=== PATIENT | female | born 1995 | race Caucasian/White ===

== ENCOUNTER 2022-08-01 10:30 | Emergency (ER) | payer MEDICARE, MEDICAID, SELFPAY ==
--- NOTE | ~2022-08-01 | US_ITS ---
EXAMINATION: US OBSTETRICAL ULTRASOUND CLINICAL INFORMATION: Abdominal pain and bleeding. Estimated gestational age of 7 weeks. COMPARISON: Pelvic ultrasound from 04/11/2015. LMP: 05/12/2022. TECHNIQUE: Sonographic imaging of the pelvis is performed using abdominal and transvaginal transducers. FINDINGS: The uterus is anteverted. The cervix is normal; it measures approximately 3 cm in length. Within the mid to lower third of the endometrial cavity, there is a well-formed gestational sac that has a mean diameter of 1.33 cm, corresponding to an estimated gestational age of 6 weeks, 1 day and estimated date of delivery of 03/26/2023. The yolk sac measures up to 0.5 cm diameter. A small echogenic structure that likely represents the pole is approximately 0.2 cm in length. There is no visible cardiac activity. However, cardiac activity might not be detected into the crown-rump length is at least 0.4 cm. No evidence of subchorionic hemorrhage. MATERNAL ADNEXA: The right ovary is 2.6 x 2.4 x 2.8 cm. No right-sided adnexal mass. A structure that likely represents the left ovary is 2.8 x 1.9 x 1.7 cm. No evidence of a left adnexal mass. No pelvic free fluid. US/US OB pelvic and transvaginal IMPRESSION: Single intrauterine gestation with ultrasound gestational age of 6 weeks, 1 day. viability is not documented on this test. The suspected pole is approximately 0.2 cm in length which may be too small for detection of a heartbeat. If deemed clinically appropriate, obtain pelvic ultrasound follow-up in the next 11-14 days since after this length of time, there should be a visible embryo with a visible heartbeat. No evidence of an adnexal mass or pelvic free fluid.
[2022-08-01 10:44] VITALS: BP 134/76; PULSE 99; RESP 16; TEMP 36.4; O2SAT 99; BMI 27.4
--- NOTE | 2022-08-01 11:50 | ED_ITS ---
HPI - General Adult General Chief complaint: General Medical Stated complaint: Miscarriage? 7 weeks Time Seen by Provider: 08/01/22 11:25 Source: patient Mode of arrival: ambulatory Limitations: no limitations History of Present Illness HPI narrative: Patient is a 26-year-old female who presents to the emergency department reporting vaginal bleeding during current . She states that her last menstrual period was 05/12/2022, with history of irregular periods. She states that she had an ultrasound done 07/10/2022 which indicated she was approximately 4 weeks at this time, reporting approximate gestation currently of 7 weeks . Yesterday she began having vaginal bleeding, described as like and spotting, although last night she also reports past a larger blood clot. Today she is having spotting, currently wearing a Julio Cesar pad, no complete saturation today. Having lower abdominal pain described as cramping 03/15. Has not yet had any care. Related Data Previous Rx's Medication Instructions Recorded cefuroxime axetil 250 mg tablet 250 mg PO BID #10 tabs 08/01/22 Allergies Allergy/AdvReac Type Severity Reaction Status Date / Time No Known Allergies Allergy Unverified 03/22/20 18:54 [No Known Allergies*] Review of Systems Review of Systems: Constitutional: No weight loss, fever, chills, weakness or fatigue. Skin: No rash or itching. Cardiovascular: No chest pain, chest pressure or chest discomfort. No palpitatio ns or pedal edema. Respiratory: No shortness of breath, cough or sputum production. Gastrointestinal: No anorexia, nausea, vomiting or diarrhea. positive abdominal pain. Denies blood in stool. Genitourinary: No burning micturition. No urinary frequency or incontinence. Positive vaginal bleeding Musculoskeletal: No muscle pain, back pain, joint pain or stiffness. Psychiatric: No depression or anxiety. Yes all other systems are reviewed and are negative FORMERLY [facility], [facility]–1983 Past Medical History Attestation statement: The following information was validated with the patient. Source: old records reviewed Social History Social History Alcohol intake: never Smoked in Last 30 Days: No Use of substances other than those prescribed or required for medical reasons: No Advance Directives: No Advance Directives Information Provided: No Physical Exam ED Vital Signs: Vital Signs - 24 hr 08/01/22 10:44 Temperature 97.5 F Pulse Rate 99 Respiratory Rate 16 Blood Pressure 134/76 Pulse Oximetry 99 Oxygen Delivery Method Room Air BMI result Body Mass Index 27.4 Appearance: Alert.?Oriented to person, place and time. No acute distress.?Normal affect. Eyes: Pupils equal, round and reactive to light.? ENT: Pharynx normal.?? Neck: Normal inspection.? Neck supple.?? CVS: Heart sounds normal. Normal heart rate and rhythm.? Pulses normal.?? Respiratory: No respiratory distress.? Lung sounds clear to auscultation bilaterally?? Abdomen: Soft and non-tender. Normoactive bowel sounds. Skin: Skin warm and dry.? Normal skin color.? Extremities: No lower extremity edema.? Neuro: Moves all extremities spontaneously. Sensation intact bilaterally. No focal neuro deficits. Ambulates with normal steady gait. Course Reevaluation(s) Reevaluation #1: CBC reveals no evidence of leukocytosis, no anemia. CMP is unremarkable. HCG is within range for estimated gestational age. She is O positive, therefore will not require RhoGAM. Urinalysis reveals microscopic hematuria and pyuria, h owever squamous epithelial cells are also present, she is asymptomatic of urinary tract infection. Ultrasound reveals a single intrauterine gestation with estimated gestational age of 6 weeks 1 day. She has reported ultrasound gestation of 4 weeks 5 days from July 10, although these records are unavailable for review at this time. Today's ultrasound revealing a pole which may be too small for detection of heartbeat, with recommendation for follow-up ultrasound in 11-14 days. I reviewed these findings with patient, concern for threatened , at this time without active bleeding since arrival to the emergency department, recommended outpatient follow-up with OB, provided with contact information for Ob associated with this hospital. Regarding asymptomatic bacteriuria, will treat with cefuroxime, prescription sent to patient's pharmacy. Discussed worrisome signs and symptoms that would warrant re-evaluation in the emergency department. Time: 14:15 Medical Decision Making Medical Decision Making MDM Narrative: Patient is a 26-year-old female with no reported past medical history presenting to the emergency department for evaluation of vaginal bleeding in the setting of current . Has associated lower abdominal pain described as cramping. Reported gestation of 7 weeks based on ultrasound, last menstrual period does not correlate with this, history of irregular menses. At the time of examination she is well-appearing, without signs/symptoms of significant anemia/blood loss. Vital signs within normal limits. Will obtain CBC, CMP, Rh, hCG, urinalysis, and pelvic ultrasound. Lab Data MDM Lab Attestation statement: I reviewed the patient's lab results. 08/01/22 12:06 08/01/22 12:06 Labs: Lab Results 08/01/22 08/01/22 08/01/22 Range/Units 12:06 12:06 12:06 WBC 9.4 (4.8-10.8) X10*3/uL RBC 4.50 (4.20-5.50) X10*6/uL Hgb 13.4 (12.0-16.0) g/dl Hct 39.4 (37.0-47.0) % MCV 87.6 (80.0-98.0) fL MCH 29.8 (27.0-33.0) pg MCHC 34.0 (31.0-35.0) g/dl RDW 12.3 (11.0-16.0) % Plt Count 376 (160-400) X10*3/uL MPV 9.0 L (9.4-12.3) fL Immature Gran % (Auto) 0.3 (0.0-0.4) % Neut % (Auto) 66.5 (45-73) % Lymph % (Auto) 25.5 (20-40) % Coke % (Auto) 6.0 (2-11) % Eos % (Auto) 1.3 (0-4) % Baso % (Auto) 0.4 (0-2) % Lymph # (Auto) 2.4 (1.2-4.9) X10*3/uL Coke # (Auto) 0.6 (0.1-1.2) X10*3/uL Eos # (Auto) 0.1 (0.0-0.4) X10*3/uL Baso # (Auto) 0.0 (0.0-0.2) X10*3/uL Abs Immat Gran (auto) 0.03 (0.00-0.03) X10*3/uL Absolute Neuts (auto) 6.2 (2.0-8.3) x10*3/uL Absolute Nucleated RBC 0.000 (0.0-0.012) X10*3/uL Nucleated RBC % (auto) 0.0 (0.0-0.2) /100WBC Sodium 138 (135-145) mmol/L Potassium 4.6 (3.3-5.1) mmol/L Chloride 105 (96-108) mmol/L Carbon Dioxide 25 (22-29) mmol/L Anion Gap 13 (12-20) BUN 9 (9-16) mg/dL Creatinine 0.71 (0.5-1.4) mg/dL Estim Creat Clear Calc 108.5 Estimated GFR > 60 Random Glucose 82 (60-115) mg/dL Calcium 9.6 (8.4-10.2) mg/dL Total Bilirubin 0.4 (0.0-1.0) mg/dL AST 14 (5-31) U/L ALT 15 (0-31) U/L Alkaline Phosphatase 83 (39-117) U/L Total Protein 7.3 (6.5-8.0) g/dL Albumin 4.2 (3.5-5.0) g/dL Beta HCG, Quant 09714 mIU/mL Urine Color Urine Appearance Urine pH (5.0-9.0) Ur Specific [place] (1.005-1.025) Urine Protein (Neg-Trace) mg/dL Urine Glucose (UA) (Negative) mg/dL Urine Ketones (Negative) mg/dL Urine Blood (Negative) Urine Nitrite (Negative) Ur Leukocyte Esterase (Negative) Urine RBC (0-2) /HPF Urine WBC (0-5) /HPF Ur Squamous Epith Cells (0-2) /HPF Urine Bacteria (None Seen) Hyaline Casts (0-2) /LPF Blood Type O Positive 08/01/22 Range/Units 12:06 WBC (4.8-10.8) X10*3/uL RBC (4.20-5.50) X10*6/uL Hgb (12.0-16.0) g/dl Hct (37.0-47.0) % MCV (80.0-98.0) fL MCH (27.0-33.0) pg MCHC (31.0-35.0) g/dl RDW (11.0-16.0) % Plt Count (160-400) X10*3/uL MPV (9.4-12.3) fL Immature Gran % (Auto) (0.0-0.4) % Neut % (Auto) (45-73) % Lymph % (Auto) (20-40) % Coke % (Auto) (2-11) % Eos % (Auto) (0-4) % Baso % (Auto) (0-2) % Lymph # (Auto) (1.2-4.9) X10*3/uL Coke # (Auto) (0.1-1.2) X10*3/uL Eos # (Auto) (0.0-0.4) X10*3/uL Baso # (Auto) (0.0-0.2) X10*3/uL Abs Immat Gran (auto) (0.00-0.03) X10*3/uL Absolute Neuts (auto) (2.0-8.3) x10*3/uL Absolute Nucleated RBC (0.0-0.012) X10*3/uL Nucleated RBC % (auto) (0.0-0.2) /100WBC Sodium (135-145) mmol/L Potassium (3.3-5.1) mmol/L Chloride (96-108) mmol/L Carbon Dioxide (22-29) mmol/L Anion Gap (12-20) BUN (9-16) mg/dL Creatinine (0.5-1.4) mg/dL Estim Creat Clear Calc Estimated GFR Random Glucose (60-115) mg/dL Calcium (8.4-10.2) mg/dL Total Bilirubin (0.0-1.0) mg/dL AST (5-31) U/L ALT (0-31) U/L Alkaline Phosphatase (39-117) U/L Total Protein (6.5-8.0) g/dL Albumin (3.5-5.0) g/dL Beta HCG, Quant mIU/mL Urine Color Yellow Urine Appearance Cloudy Urine pH 6.5 (5.0-9.0) Ur Specific [place] 1.010 (1.005-1.025) Urine Protein Negative (Neg-Trace) mg/dL Urine Glucose (UA) Negative (Negative) mg/dL Urine Ketones Negative (Negative) mg/dL Urine Blood Large (3+) H (Negative) Urine Nitrite Negative (Negative) Ur Leukocyte Esterase Large (3+) H (Negative) Urine RBC >20 H (0-2) /HPF Urine WBC 11-20 H (0-5) /HPF Ur Squamous Epith Cells 6-10 (0-2) /HPF Urine Bacteria 1+ (None Seen) Hyaline Casts 0-2 (0-2) /LPF Blood Type Independent Interpretation I performed an independent interpretation of an: Ultrasound Radiology Impression Discussion of test interpretation with radiology: I have reviewed the radiologist's reading. Radiologist Impression: US/US OB pelvic and transvaginal IMPRESSION: Single intrauterine gestation with ultrasound gestational age of? 6 weeks, 1 day. ? viability is not documented on this test. The suspected pole is approximately 0.2 cm in length which may be too small for detection of a heartbeat. If deemed clinically appropriate, obtain pelvic ultrasound follow-up in the next 11-14 days since after this length of time, there should be a visible embryo with a visible heartbeat. ? No evidence of an adnexal mass or pelvic free fluid. Discharge Plan Discharge Clinical Impression: Threatened affecting intrauterine , Asymptomatic bacteriuria Patient Disposition: Home, Self-Care Instructions: Threatened Miscarriage (ED) Additional Instructions: As we discussed, at this time the ultrasound reveals that you are approximately 6 weeks . At this time it is difficult to detect a heartbeat due to the size. You should follow-up with an OB provider to have a repeat ultrasound in about 2 weeks. At that time, it would be more likely that a heartbeat could be identified. As we discussed, bleeding at this point in is considered a threatened miscarriage. You may return to the emergency department with any new or significantly worsening symptoms or concerns. Continue taking vitamin daily. A prescription was sent for antibiotic to your pharmacy to treat bacteria in the urine, please complete this entire course. Prescriptions: New cefuroxime axetil 250 mg tablet 250 mg PO BID Qty: 10 0RF Referrals: Physician,Nonstaff [Primary Care Provider] - Shantanu Maldonado MD [Physician] - Interventions: ED Discharge Assessment Last Done: 08/01/22 14:34 Discharge Date/Time: 08/01/22 14:36
[2022-08-01 12:15] LABS: MANUAL DIFF FLAG NO
[2022-08-01 12:18] LABS: Appearance Urine Cloudy; Color Urine Yellow; Glucose Urine UA Negative (Negative); Leukocyte Esterase Urine Large (3+) (Negative); Nitrite Urine Negative (Negative); PH 6.5 (5.0-9.0); UMIC TRIGGER UACC YES; Urine Blood Large (3+) (Negative); Urine Ketones Negative (Negative); Urine Protein Negative (Neg-Trace)
[2022-08-01 12:19] LABS: Basophils Percent Auto 0.4 % (0-2); Eosinophils Absolute Auto 0.1 X10*3/uL (0.0-0.4); Eosinophils Percent Auto 1.3 % (0-4); Hematocrit 39.4 % (37.0-47.0); Hemoglobin 13.4 g/dl (12.0-16.0); Imm Gran Abs Auto 0.03 X10*3/uL (0.00-0.03); Imm Gran Pct Auto 0.3 % (0.0-0.4); Lymphocytes Absolute Auto 2.4 X10*3/uL (1.2-4.9); Lymphocytes Percent Auto 25.5 % (20-40); Mean Corpuscular Hemoglobin 29.8 pg (27.0-33.0); Mean Corpuscular Volume 87.6 fL (80.0-98.0); Monocytes Absolute Auto 0.6 X10*3/uL (0.1-1.2); Neutrophils Absolute Auto 6.2 x10*3/uL (2.0-8.3); Neutrophils Percent Auto 66.5 % (45-73); Platelet Count 376 X10*3/uL (160-400); Red Cell Distribution Width 12.3 % (11.0-16.0); White Blood Count 9.4 X10*3/uL (4.8-10.8)
[2022-08-01 12:31] LABS: Bacteria Urine 1+ (None Seen); Hyaline Casts Urine 0-2 /LPF (0-2); RBC Urine >20 /HPF (0-2); UACC Culture Trigger YES
[2022-08-01 12:39] LABS: Alanine Aminotransferase 15 U/L (0-31); Albumin Level 4.2 g/dL (3.5-5.0); Alkaline Phosphatase 83 U/L (39-117); Anion Gap 13 (12-20); Aspartate Amino Transferase 14 U/L (5-31); Bilirubin Total 0.4 mg/dL (0.0-1.0); Blood Urea Nitrogen 9 mg/dL (9-16); Calcium 9.6 mg/dL (8.4-10.2); Carbon Dioxide 25 mmol/L (22-29); Chloride 105 mmol/L (96-108); Creatinine Clr Calc Pharmacy 108.5; Estimated Glomerular Filt Rate > 60; Glucose Random 82 mg/dL (60-115); HCG Quantitative 11089 mIU/mL; Potassium 4.6 mmol/L (3.3-5.1); Sodium 138 mmol/L (135-145); Total Protein 7.3 g/dL (6.5-8.0)
== END 2022-08-01 14:36 | disposition home or self-care (01) ==
PROVIDERS: Nurse Practitioner Family; Emergency Provider Student in an Organized Health Care Education/Training Program
DX: O20.0 Threatened abortion (principal); Z3A.01 Less than 8 weeks gestation of pregnancy; O23.41 Unspecified infection of urinary tract in pregnancy, first trimester; N39.0 Urinary tract infection, site not specified; B96.89 Other specified bacterial agents as the cause of diseases classified elsewhere
CPT/HCPCS: 36415; 76801; 76817; 80053; 81001; 84702; 85025; 86900; 86901; 87086; 99284

== ENCOUNTER 2022-08-05 11:25 | Outpatient (REF) | payer MEDICARE, MEDICAID, SELFPAY | END 2022-08-05 11:26 | disposition home or self-care (01) | LOC: HO.LNP 11:25 | PROVIDERS: Visit Provider Obstetrics & Gynecology | DX: Z13.89 Encounter for screening for other disorder (principal) | CPT/HCPCS: 88305; 99202 ==

== ENCOUNTER 2022-08-05 12:40 | Outpatient (REF) | payer MEDICARE, MEDICAID, SELFPAY ==
--- NOTE | ~2022-08-05 | US_ITS ---
EXAMINATION: US OBSTETRICAL ULTRASOUND CLINICAL INFORMATION: Bleeding, evaluate for miscarriage. COMPARISON: Pelvic ultrasound 08/01/2022. LMP: Not reported, presumably unknown. TECHNIQUE: Transabdominal and transvaginal images obtained with the patient's consent. FINDINGS: No evidence of intrauterine gestational sac in this examination. The endometrium is thickened measuring up to 1.3 cm with heterogeneous but predominantly hyperechoic content and associated vascularity. The ovaries are normal in morphology. The right ovary measures 2.8 x 2.6 x 1.9 cm volume of 7.2 mL and the left ovary measures 2.9 x 3.5 x 2.3 cm volume of 12.2 mL. No adnexal lesion. No free fluid. US/US OB pelvic and transvaginal IMPRESSION: No evidence of intrauterine gestation. The endometrium is thickened and hypervascular which could be associated with retained products of conception or endometritis. There are no discrete shadowing echogenic foci to suspect air within the endometrium. Recommend correlation with quantitative hCG and OB consultation to determine further management. No adnexal lesion.
[2022-08-05 14:01] LABS: HCG Quantitative 562 mIU/mL
[2022-08-05 18:30] LABS: CT PCR NOT DETECTED (Not Detect.); NG PCR NOT DETECTED (Not Detect.)
== END 2022-08-05 12:41 | disposition home or self-care (01) ==
LOC: HO.US 12:40
PROVIDERS: Visit Provider Obstetrics & Gynecology
DX: O03.9 Complete or unspecified spontaneous abortion without complication (principal)
CPT/HCPCS: 0353U; 76801; 76817; 84702; 88305; 99202